=== PATIENT | female | born 1955 | race Caucasian/White ===

== ENCOUNTER 2018-04-29 22:30 | Inpatient (IN) | payer MEDICARE ==
[~2018-04-29] VITALS: Ht 165.1 cm; Wt 68.7 kg
[2018-04-29] MEDS: SODIUM CHLORIDE 0.9% 1000ML 1,000 ML IV SCH (23:15)
[2018-04-30] VITALS (10 sets, daily range): BP systolic 102–143; BP diastolic 51–67
[2018-04-30] MEDS: PIPER-TAZ 3.375 GM 50 ML IV SCH ×4 (01:00→22:00)
[2018-04-30] MEDS: ACETAMINOPHEN 325 MG TAB PO PRN (02:15)
[2018-04-30] MEDS: HYDROMORPHONE 1MG/1ML INJ IV PRN ×3 (06:09→20:57)
[2018-04-30] MEDS: ONDANSETRON HCL INJ 2 MG/ML VIAL IV PRN ×3 (06:09→20:57)
[2018-04-30] MEDS ORDERED: ACEBUTOLOL HCL200 MG PO (10:20)
[2018-04-30] MEDS ORDERED: LOVASTATIN40 MG PO (10:20)
[2018-04-30] MEDS ORDERED: TYLENOL WITH C1 EACH PO (10:20)
[2018-04-30] MEDS ORDERED: LOSARTAN POTASS25 MG PO (10:20)
[2018-04-30 10:38] LABS: BASOPHILS % 0.2 % (0.0-1.0); HEMATOCRIT 27.7 % (34.2-44.1); LYMPHOCYTES # (AUTO) 0.8 (1.0-3.2); LYMPHOCYTES % 4.1 % (18.0-39.1); MEAN CORPUSCULAR HEMOGLOBIN 27.9 pg (28-32); MEAN CORPUSCULAR HGB CONC 31.4 g/dL (31-35); MEAN CORPUSCULAR VOLUME 88.8 fL (81-99); MONOCYTES # (AUTO) 0.6 (0.2-0.8); NEUTROPHILS # (AUTO) 17.8 (2.1-6.9); NEUTROPHILS % 92.1 % (38.7-80.0); PLATELET COUNT 336 x10e3/uL (140-360); RED BLOOD COUNT 3.12 x10e6/uL (3.6-5.1); RED CELL DISTRIBUTION WIDTH 14.6 % (11.7-14.4)
[2018-04-30 10:41] LABS: HEMOGLOBIN 8.7 g/dL (12.0-16.0)
[2018-04-30 11:04] LABS: ANION GAP 14.7 mmol/L (8-16); BLOOD UREA NITROGEN 11 mg/dL (7-26); BUN/CREATININE RATIO 15 (6-25); CALCIUM 8.8 mg/dL (8.4-10.2); CARBON DIOXIDE 21 mmol/L (22-29); CHLORIDE 107 mmol/L (98-107); CREATININE, SERUM 0.75 mg/dL (0.57-1.11); EST GLOMERULAR FILTRATION RATE > 60 ML/MIN (60-); GLUCOSE 127 mg/dL (74-118); POTASSIUM 3.7 mmol/L (3.5-5.1); SODIUM 139 mmol/L (136-145)
[2018-04-30] MEDS: SODIUM CHLORIDE 0.9% 1000ML 1,000 ML IV SCH (11:46)
[2018-04-30 12:01] LABS: BAND NEUTROPHILS % (MANUAL) 9 %; LYMPHOCYTES % (MANUAL) 4 % (19-48); MONOCYTES % (MANUAL) 4 % (3.4-9.0); NEUTROPHILS % (MANUAL) 83 % (40-74)
[2018-04-30 12:02] LABS: ANISOCYTOSIS SLIGHT; HYPOCHROMASIA SLIGHT; PLATELET ESTIMATE ADEQUATE; PLATELET MORPHOLOGY COMMENT NORMAL; RBC MORPHOLOGY COMMENT NORMAL
--- NOTE | 2018-04-30 16:28 | Consultation ---
DATE OF CONSULTATION: REASON FOR CONSULTATION: Pelvic abscess. HISTORY OF PRESENT ILLNESS: This patient, according to family, she was in her usual state of health until the day before admission when she started to have abdominal pain, fever, and chills, and the pain was in lower part of her abdomen. The patient has a history of stroke affecting her speech. Patient is alert, oriented, follows commands. Her son is at the bedside. The patient is complaining of abdominal pain. A CAT scan was done, showed there was a cyst. The patient was seen by surgery, who recommended to be seen by NET FISHER since the cyst/mass is related to her ovaries. The patient is currently alert, oriented, has no complaints except for pain as mentioned above. REVIEW OF SYSTEMS HEENT: Otherwise negative. PULMONARY: Negative. CARDIAC: Negative. : Negative. GI: Negative. SKIN: There is no rash. JOINTS: Negative. PHYSICAL EXAMINATION GENERAL: She is currently alert, oriented, does not seem to be in acute distress. VITALS: Stable, currently afebrile. HEENT: Normocephalic. Does not appear icteric. NECK: Supple. No JVD. No lymphadenopathy. No thyromegaly. CHEST: Clear bilateral. HEART: S1, S2. No S3, S4 murmur. ABDOMEN: Soft. Bowel sounds present. No tenderness. EXTREMITIES: No edema. SKIN: No rash. Her white count was 19.8, hemoglobin 8.7, platelets of 336. Her sodium 139, potassium 3.7. IMPRESSION: Pelvic ovarian cyst, abscess. Concern about other. PLAN: I would recommend CT-guided aspiration, NET FISHER consulted. Continue with Zosyn. Await blood cultures. Discussed with the family. Will discuss with NET FISHER after the patient has been seen. Job#: [id number] KAYLEEN
[2018-04-30] MEDS ORDERED: DEXAMETHASONE SOD PHOS INJ 4 MG/ML VIAL ONE (17:30)
[2018-04-30] MEDS ORDERED: SEVOFLURANE INHAL SOLN 250 ML PEN BTL ONE (17:30)
[2018-04-30] MEDS ORDERED: EPHEDRINE SULFATE INJ 50 MG/10 ML SYR ONE (17:30)
[2018-04-30] MEDS ORDERED: PROPOFOL IV EMULSION 10 MG/ML 20 ML VIAL ONE (17:30)
[2018-04-30] MEDS ORDERED: LIDOCAINE HCL 2% LOCAL INJ 5 ML SDV VIAL INJ ONE (17:30)
[2018-04-30] MEDS ORDERED: ONDANSETRON HCL INJ 2 MG/ML VIAL ONE (17:30)
[2018-04-30] MEDS ORDERED: MIDAZOLAM HCL 2 MG/2 ML VIAL ONE (18:23)
[2018-04-30] MEDS ORDERED: FENTANYL CITRATE/PF 100MCG/2 ML INJ ONE (18:23)
[2018-04-30] MEDS: ENOXAPARIN SOD INJ 40 MG/0.4 ML SYR SC SCH (21:00)
[2018-05-01] VITALS (8 sets, daily range): BP systolic 102–151; BP diastolic 53–90
[2018-05-01] MEDS: SODIUM CHLORIDE 0.9% 1000ML 1,000 ML IV SCH ×2 (06:14→15:15)
[2018-05-01] MEDS: PIPER-TAZ 3.375 GM 50 ML IV SCH ×3 (06:14→21:07)
[2018-05-01 06:20] LABS: BASOPHILS % 0.1 % (0.0-1.0); HEMATOCRIT 25.1 % (34.2-44.1); HEMOGLOBIN 7.9 g/dL (12.0-16.0); LYMPHOCYTES # (AUTO) 0.5 (1.0-3.2); MEAN CORPUSCULAR HEMOGLOBIN 28.2 pg (28-32); MEAN CORPUSCULAR HGB CONC 31.5 g/dL (31-35); MEAN CORPUSCULAR VOLUME 89.6 fL (81-99); MONOCYTES # (AUTO) 0.4 (0.2-0.8); MONOCYTES % 2.1 % (4.4-11.3); NEUTROPHILS % 94.1 % (38.7-80.0); PLATELET COUNT 340 x10e3/uL (140-360); RED CELL DISTRIBUTION WIDTH 14.6 % (11.7-14.4)
[2018-05-01 06:40] LABS: ALANINE AMINOTRANSFERASE 21 IU/L (0-55); ALBUMIN 1.9 g/dL (3.5-5.0); ALBUMIN/GLOBULIN RATIO 0.5 (0.8-2.0); ALKALINE PHOSPHATASE 127 IU/L (40-150); ANION GAP 12.7 mmol/L (8-16); BLOOD UREA NITROGEN 11 mg/dL (7-26); BUN/CREATININE RATIO 16 (6-25); CARBON DIOXIDE 21 mmol/L (22-29); CHLORIDE 109 mmol/L (98-107); CREATININE, SERUM 0.67 mg/dL (0.57-1.11); EST GLOMERULAR FILTRATION RATE > 60 ML/MIN (60-); GLUCOSE 168 mg/dL (74-118); POTASSIUM 3.7 mmol/L (3.5-5.1); SODIUM 139 mmol/L (136-145)
[2018-05-01] MEDS ORDERED: SODIUM CHLORIDE 0.9% 250ML 250 ML IV ONE (07:00)
[2018-05-01 10:15] LABS: BAND NEUTROPHILS % (MANUAL) 4 %; LYMPHOCYTES % (MANUAL) 2 % (19-48); NEUTROPHILS % (MANUAL) 94 % (40-74)
[2018-05-01 10:16] LABS: PLATELET ESTIMATE ADEQUATE; PLATELET MORPHOLOGY COMMENT NORMAL; RBC MORPHOLOGY COMMENT NORMAL
[2018-05-01 10:17] LABS: ANISOCYTOSIS SLIGHT; HYPOCHROMASIA MODERATE
[2018-05-01] MEDS ORDERED: SODIUM CHLORIDE 0.9% 250ML 250 ML ONE (10:44)
[2018-05-01] MEDS: ONDANSETRON HCL INJ 2 MG/ML VIAL IV PRN ×2 (11:47→20:54)
[2018-05-01] MEDS: HYDROMORPHONE 1MG/1ML INJ IV PRN ×2 (11:47→20:54)
--- NOTE | 2018-05-01 13:52 | Operative Report ---
DATE OF PROCEDURE: April 30, 2018 TOBACCO WEIGHER: None. PREOPERATIVE DIAGNOSES 1. Thickened endometrium. 2. Pelvic mass. POSTOPERATIVE DIAGNOSES 1. Thickened endometrium. 2. Pelvic mass. PROCEDURES PERFORMED 1. Dilatation and curettage. Exam under anesthesia. 1. ANESTHESIA: General. ESTIMATED BLOOD LOSS: Minimal. COMPLICATIONS: None. FINDINGS: During exam under anesthesia, the patient was noted to have a small anteverted uterus, atrophic vaginal mucosa, a palpable left adnexal mass, which appeared to be cystic in nature and cervix both atrophic and firm. SPECIMENS: Included endometrial curettings. INDICATIONS: The patient is a 63-year-old postmenopausal 2, para 2, who presented to the hospital with a pelvic mass and thickened endometrium. PROCEDURE NOTE: Prior to the procedure, the risks, benefits and alternatives were discussed and the patient agreed to proceed. Following anesthesia, the patient was placed in a modified dorsal lithotomy position. Prepping and draping was performed in typical sterile fashion and a timeout was done. An exam under anesthesia was performed with the findings noted above. A Pap smear of the cervix was obtained, which was then brought to my office for further evaluation. A weighted speculum was then replaced in the vagina. The cervix was grasped with a single-tooth tenaculum. The cervix was sequentially dilated with Hegar dilators. Cultures were taken of the endometrial contents. A sharp curettage was then performed until a gritty texture was noted. All endometrial tissues were sent to pathology. All instruments were removed from the patient and tenaculum sites were noted to be hemostatic. The patient was brought to the recovery room in stable condition. Job#: [id number] BARBRE
[2018-05-01] MEDS: ENOXAPARIN SOD INJ 40 MG/0.4 ML SYR SC SCH (17:12)
[2018-05-01] MEDS: PANTOPRAZOLE SOD 40 MG TABEC PO SCH (17:35)
[2018-05-02] VITALS (7 sets, daily range): BP systolic 144–188; BP diastolic 66–123
[2018-05-02] MEDS: SODIUM CHLORIDE 0.9% 1000ML 1,000 ML IV SCH ×2 (00:28→03:07)
[2018-05-02] MEDS: PIPER-TAZ 3.375 GM 50 ML IV SCH (05:18)
[2018-05-02 05:56] LABS: BASOPHILS % 0.1 % (0.0-1.0); HEMOGLOBIN 10.3 g/dL (12.0-16.0); LYMPHOCYTES # (AUTO) 0.8 (1.0-3.2); LYMPHOCYTES % 4.2 % (18.0-39.1); MEAN CORPUSCULAR HEMOGLOBIN 28.5 pg (28-32); MEAN CORPUSCULAR HGB CONC 32.2 g/dL (31-35); MEAN CORPUSCULAR VOLUME 88.4 fL (81-99); MONOCYTES # (AUTO) 0.4 (0.2-0.8); MONOCYTES % 1.9 % (4.4-11.3); NEUTROPHILS # (AUTO) 18.5 (2.1-6.9); NEUTROPHILS % 92.5 % (38.7-80.0); PLATELET COUNT 378 x10e3/uL (140-360); RED BLOOD COUNT 3.62 x10e6/uL (3.6-5.1); RED CELL DISTRIBUTION WIDTH 14.6 % (11.7-14.4)
[2018-05-02 06:28] LABS: ALANINE AMINOTRANSFERASE 16 IU/L (0-55); ALBUMIN 1.8 g/dL (3.5-5.0); ALBUMIN/GLOBULIN RATIO 0.4 (0.8-2.0); ALKALINE PHOSPHATASE 133 IU/L (40-150); ANION GAP 10.6 mmol/L (8-16); BLOOD UREA NITROGEN 11 mg/dL (7-26); BUN/CREATININE RATIO 17 (6-25); CALCIUM 9.1 mg/dL (8.4-10.2); CARBON DIOXIDE 22 mmol/L (22-29); CHLORIDE 108 mmol/L (98-107); CREATININE, SERUM 0.64 mg/dL (0.57-1.11); EST GLOMERULAR FILTRATION RATE > 60 ML/MIN (60-); GLUCOSE 118 mg/dL (74-118); POTASSIUM 3.6 mmol/L (3.5-5.1); SODIUM 137 mmol/L (136-145)
[2018-05-02] MEDS: MAGNESIUM/ALUMINUM/SIMETHICONE 30 ML UDC PO PRN (07:01)
[2018-05-02] MEDS: ONDANSETRON HCL INJ 2 MG/ML VIAL IV PRN (07:30)
[2018-05-02] MEDS: PANTOPRAZOLE SOD 40 MG TABEC PO SCH (09:00)
[2018-05-02] MEDS: LOSARTAN POTASSIUM 25 MG TAB PO SCH (09:00)
[2018-05-02] MEDS: ACEBUTOLOL HCL 200 MG CAP PO SCH (10:25)
[2018-05-02] MEDS: PROMETHAZINE 25MG/ NS 50ML (IV) IV PRN ×2 (11:20→21:12)
[2018-05-02] MEDS: CEFTRIAXONE SOD 1 GM VIAL IV SCH (11:20)
[2018-05-02 11:21] LABS: AMYLASE 20 U/L (25-125)
[2018-05-02 11:22] LABS: LIPASE < 4 U/L (8-78)
[2018-05-02] MEDS: ENOXAPARIN SOD INJ 40 MG/0.4 ML SYR SC SCH (17:00)
[2018-05-02] MEDS: SIMVASTATIN 20 MG TAB PO SCH (20:20)
[2018-05-02] MEDS: HYDROMORPHONE 1MG/1ML INJ IV PRN (21:12)
[2018-05-03] VITALS (7 sets, daily range): BP systolic 123–154; BP diastolic 59–82
[2018-05-03] MEDS: SODIUM CHLORIDE 0.9% 1000ML 1,000 ML IV SCH (07:15)
[2018-05-03 07:59] LABS: BASOPHILS % 0.2 % (0.0-1.0); EOSINOPHILS % 0.1 % (0.0-6.0); HEMATOCRIT 30.8 % (34.2-44.1); HEMOGLOBIN 9.8 g/dL (12.0-16.0); LYMPHOCYTES # (AUTO) 1.1 (1.0-3.2); LYMPHOCYTES % 9.3 % (18.0-39.1); MEAN CORPUSCULAR HEMOGLOBIN 28.1 pg (28-32); MEAN CORPUSCULAR HGB CONC 31.8 g/dL (31-35); MEAN CORPUSCULAR VOLUME 88.3 fL (81-99); MONOCYTES # (AUTO) 0.4 (0.2-0.8); MONOCYTES % 3.3 % (4.4-11.3); NEUTROPHILS # (AUTO) 10.1 (2.1-6.9); NEUTROPHILS % 86.7 % (38.7-80.0); PLATELET COUNT 363 x10e3/uL (140-360); RED BLOOD COUNT 3.49 x10e6/uL (3.6-5.1)
[2018-05-03 08:17] LABS: ANION GAP 10.5 mmol/L (8-16); BLOOD UREA NITROGEN 13 mg/dL (7-26); BUN/CREATININE RATIO 22 (6-25); CALCIUM 8.5 mg/dL (8.4-10.2); CARBON DIOXIDE 22 mmol/L (22-29); CHLORIDE 110 mmol/L (98-107); EST GLOMERULAR FILTRATION RATE > 60 ML/MIN (60-); GLUCOSE 106 mg/dL (74-118); POTASSIUM 3.5 mmol/L (3.5-5.1); SODIUM 139 mmol/L (136-145)
[2018-05-03] MEDS: ACEBUTOLOL HCL 200 MG CAP PO SCH (08:30)
[2018-05-03] MEDS: LOSARTAN POTASSIUM 25 MG TAB PO SCH (08:30)
[2018-05-03] MEDS: PANTOPRAZOLE SOD 40 MG TABEC PO SCH (08:30)
[2018-05-03] MEDS: CEFTRIAXONE SOD 1 GM VIAL IV SCH (08:30)
[2018-05-03] MEDS ORDERED: CEFTRIAXONE SOD 1 GM VIAL IV SCH (09:00)
[2018-05-03] MEDS: ONDANSETRON HCL INJ 2 MG/ML VIAL IV PRN (15:42)
[2018-05-03] MEDS: HYDROMORPHONE 1MG/1ML INJ IV PRN (15:42)
[2018-05-03] MEDS: ENOXAPARIN SOD INJ 40 MG/0.4 ML SYR SC SCH (17:00)
[2018-05-03] MEDS: SIMVASTATIN 20 MG TAB PO SCH (22:00)
[2018-05-04] MEDS: PROMETHAZINE 25MG/ NS 50ML (IV) IV PRN ×2 (00:45→21:12)
[2018-05-04] MEDS: HYDROMORPHONE 1MG/1ML INJ IV PRN ×2 (00:45→21:12)
[2018-05-04 00:49] VITALS: BP 139/65
[2018-05-04] MEDS: SODIUM CHLORIDE 0.9% 1000ML 1,000 ML IV SCH ×2 (03:00→09:55)
[2018-05-04 05:03] VITALS: BP 132/61
[2018-05-04 08:00] VITALS: BP 143/67
[2018-05-04] MEDS: CEFTRIAXONE SOD 1 GM VIAL IV SCH (08:30)
[2018-05-04] MEDS: ACEBUTOLOL HCL 200 MG CAP PO SCH (08:30)
[2018-05-04] MEDS: PANTOPRAZOLE SOD 40 MG TABEC PO SCH (08:30)
[2018-05-04] MEDS: LOSARTAN POTASSIUM 25 MG TAB PO SCH (08:30)
[2018-05-04 12:00] VITALS: BP 156/78
[2018-05-04 16:00] VITALS: BP 147/54
[2018-05-04] MEDS: ENOXAPARIN SOD INJ 40 MG/0.4 ML SYR SC SCH (16:54)
[2018-05-04 20:00] VITALS: BP 151/71
[2018-05-04] MEDS: SIMVASTATIN 20 MG TAB PO SCH (21:00)
[2018-05-05] VITALS (10 sets, daily range): BP systolic 136–169; BP diastolic 66–89
[2018-05-05 06:02] LABS: BASOPHILS % 0.2 % (0.0-1.0); EOSINOPHILS # (AUTO) 0.1 (0.0-0.4); EOSINOPHILS % 0.5 % (0.0-6.0); HEMATOCRIT 29.5 % (34.2-44.1); HEMOGLOBIN 9.3 g/dL (12.0-16.0); LYMPHOCYTES # (AUTO) 0.9 (1.0-3.2); LYMPHOCYTES % 8.9 % (18.0-39.1); MEAN CORPUSCULAR HEMOGLOBIN 27.9 pg (28-32); MEAN CORPUSCULAR HGB CONC 31.5 g/dL (31-35); MEAN CORPUSCULAR VOLUME 88.6 fL (81-99); MONOCYTES # (AUTO) 0.3 (0.2-0.8); MONOCYTES % 3.2 % (4.4-11.3); NEUTROPHILS # (AUTO) 8.2 (2.1-6.9); NEUTROPHILS % 85.3 % (38.7-80.0); PLATELET COUNT 311 x10e3/uL (140-360); RED BLOOD COUNT 3.33 x10e6/uL (3.6-5.1); RED CELL DISTRIBUTION WIDTH 14.9 % (11.7-14.4)
[2018-05-05 06:22] LABS: ALANINE AMINOTRANSFERASE 21 IU/L (0-55); ALBUMIN 1.7 g/dL (3.5-5.0); ALBUMIN/GLOBULIN RATIO 0.5 (0.8-2.0); ALKALINE PHOSPHATASE 167 IU/L (40-150); ANION GAP 11.2 mmol/L (8-16); BLOOD UREA NITROGEN 5 mg/dL (7-26); BUN/CREATININE RATIO 9 (6-25); CALCIUM 8.3 mg/dL (8.4-10.2); CARBON DIOXIDE 23 mmol/L (22-29); CHLORIDE 108 mmol/L (98-107); CREATININE, SERUM 0.54 mg/dL (0.57-1.11); EST GLOMERULAR FILTRATION RATE > 60 ML/MIN (60-); GLUCOSE 101 mg/dL (74-118); POTASSIUM 3.2 mmol/L (3.5-5.1); SODIUM 139 mmol/L (136-145)
[2018-05-05] MEDS: LOSARTAN POTASSIUM 25 MG TAB PO SCH (08:23)
[2018-05-05] MEDS: CEFTRIAXONE SOD 1 GM VIAL IV SCH (08:23)
[2018-05-05] MEDS: PANTOPRAZOLE SOD 40 MG TABEC PO SCH (08:23)
[2018-05-05] MEDS: ACEBUTOLOL HCL 200 MG CAP PO SCH (08:23)
[2018-05-05] MEDS ORDERED: POTASSIUM CHLORIDE 20 MEQ TAB CR PO ONE (10:10)
[2018-05-05] MEDS: HYDROMORPHONE 1MG/1ML INJ IV PRN (11:24)
[2018-05-05] MEDS: ONDANSETRON HCL INJ 2 MG/ML VIAL IV PRN (11:25)
[2018-05-05] MEDS: ENOXAPARIN SOD INJ 40 MG/0.4 ML SYR SC SCH (16:45)
[2018-05-05] MEDS: SIMVASTATIN 40 MG TAB PO SCH (20:42)
[2018-05-06] VITALS (8 sets, daily range): BP systolic 149–184; BP diastolic 72–92
[2018-05-06 06:15] LABS: BASOPHILS % 0.2 % (0.0-1.0); EOSINOPHILS # (AUTO) 0.1 (0.0-0.4); EOSINOPHILS % 0.6 % (0.0-6.0); HEMATOCRIT 29.1 % (34.2-44.1); HEMOGLOBIN 9.4 g/dL (12.0-16.0); LYMPHOCYTES # (AUTO) 0.9 (1.0-3.2); LYMPHOCYTES % 9.4 % (18.0-39.1); MEAN CORPUSCULAR HEMOGLOBIN 27.9 pg (28-32); MEAN CORPUSCULAR HGB CONC 32.3 g/dL (31-35); MEAN CORPUSCULAR VOLUME 86.4 fL (81-99); MONOCYTES # (AUTO) 0.4 (0.2-0.8); NEUTROPHILS # (AUTO) 8.1 (2.1-6.9); NEUTROPHILS % 84.8 % (38.7-80.0); PLATELET COUNT 323 x10e3/uL (140-360); RED BLOOD COUNT 3.37 x10e6/uL (3.6-5.1); RED CELL DISTRIBUTION WIDTH 14.7 % (11.7-14.4)
[2018-05-06 06:43] LABS: ALANINE AMINOTRANSFERASE 20 IU/L (0-55); ALBUMIN 1.7 g/dL (3.5-5.0); ALBUMIN/GLOBULIN RATIO 0.4 (0.8-2.0); ALKALINE PHOSPHATASE 176 IU/L (40-150); ANION GAP 11.7 mmol/L (8-16); BLOOD UREA NITROGEN 5 mg/dL (7-26); BUN/CREATININE RATIO 9 (6-25); CALCIUM 8.7 mg/dL (8.4-10.2); CARBON DIOXIDE 24 mmol/L (22-29); CHLORIDE 108 mmol/L (98-107); CREATININE, SERUM 0.55 mg/dL (0.57-1.11); EST GLOMERULAR FILTRATION RATE > 60 ML/MIN (60-); GLUCOSE 115 mg/dL (74-118); POTASSIUM 3.7 mmol/L (3.5-5.1); SODIUM 140 mmol/L (136-145)
[2018-05-06] MEDS: PANTOPRAZOLE SOD 40 MG TABEC PO SCH (07:47)
[2018-05-06] MEDS: CEFTRIAXONE SOD 1 GM VIAL IV SCH (08:49)
[2018-05-06] MEDS: ACEBUTOLOL HCL 200 MG CAP PO SCH (08:49)
[2018-05-06] MEDS: LOSARTAN POTASSIUM 25 MG TAB PO SCH (08:49)
[2018-05-06] MEDS: ONDANSETRON HCL INJ 2 MG/ML VIAL IV PRN (14:45)
[2018-05-06] MEDS: HYDROMORPHONE 1MG/1ML INJ IV PRN (14:45)
[2018-05-06] MEDS: ENOXAPARIN SOD INJ 40 MG/0.4 ML SYR SC SCH (16:39)
[2018-05-06] MEDS: SIMVASTATIN 40 MG TAB PO SCH (20:36)
[2018-05-07] VITALS (7 sets, daily range): BP systolic 151–168; BP diastolic 77–92
[2018-05-07] MEDS: ACETAMINOPHEN 325 MG TAB PO PRN (06:25)
[2018-05-07] MEDS ORDERED: IOPAMIDOL 300MG/ML 50ML INFUS..BTL IV ONE (07:03)
[2018-05-07] MEDS: PANTOPRAZOLE SOD 40 MG TABEC PO SCH (07:30)
[2018-05-07] MEDS ORDERED: METRONIDAZOLE 500MG/NS 100ML 100 ML IV ONE (08:58)
[2018-05-07] MEDS: CEFTRIAXONE SOD 1 GM VIAL IV SCH (09:00)
[2018-05-07] MEDS: LOSARTAN POTASSIUM 25 MG TAB PO SCH (09:00)
[2018-05-07] MEDS: ACEBUTOLOL HCL 200 MG CAP PO SCH (09:00)
[2018-05-07] MEDS ORDERED: NALOXONE HCL INJ 0.4 MG/ML AMP IV PRN (10:00)
[2018-05-07] MEDS ORDERED: ONDANSETRON HCL INJ 2 MG/ML VIAL IV PRN (10:00)
[2018-05-07] MEDS ORDERED: ACETAMINOPHEN 1000 MG/100 ML IV PRN (10:00)
[2018-05-07] MEDS ORDERED: FENTANYL CITRATE/PF 100MCG/2 ML INJ ONE ×2 (10:41→16:34)
--- NOTE | 2018-05-07 11:54 | Operative Report ---
DATE OF PROCEDURE: PREOPERATIVE DIAGNOSIS: Pelvic abscess. POSTOPERATIVE DIAGNOSIS: Pelvic abscess secondary to perforated diverticulitis with adnexal mass. PROCEDURE: Sigmoid colon resection with end-colostomy and resection of adnexal mass. TIMEKEEPING SUPERVISOR: Sally Yee MD ANESTHESIA: General endotracheal. INDICATIONS AND FINDINGS: The patient is a 63-year-old female who was admitted to the hospital with abdominal pain and found to have an abscess in the pelvis thought to be due to tubo-ovarian pathology. At surgery, there was found to be an abscess that was arising from the sigmoid colon. There were diverticular disease and perforation of the sigmoid colon. Abscess involved the left tube and ovary, which were removed with the abscess. TECHNIQUE: Patient was already undergoing surgery by Dr. Yee, and I was asked to come see the patient. The patient was found to have an inflammatory mass involving the mid-sigmoid colon, which was involving the left adnexa. The colon was mobilized further. The ureter had a stent in place, and this was palpable and the ureter was preserved. There was found to be an inflammatory process involving the mid-sigmoid colon. The colon was mobilized completely. There was found to be a mass associated with the colon which was an abscess cavity. This was resected and submitted for frozen section, which revealed abscess cavity but also contained left ovary and tube, which were not the source of the pathology. There was a perforation of the sigmoid colon. The sigmoid colon was resected. The colon proximal to the area of abscess was divided with the CAROLINE stapler as was the colon distal to the area of the abscess. The mesentery was divided with a LigaSure device and the specimen removed. Distal colon was marked with long sutures of 3-0 Prolene and left in place. The proximal colon was mobilized further by dividing peritoneal attachments. Care was taken not to injure the ureter. A stoma was created on the left side of the abdomen. A chicken ranch of skin removed and carried down through the subcutaneous tissue to the fascia. The fascia was opened in a cruciate fashion, muscle fibers split, and the peritoneal cavity was entered. Colon was delivered up into the wound to be matured as a colostomy. The peritoneal cavity was irrigated with saline. All fluid aspirated and inspected for hemostasis, which was seen to be adequate. It was irrigated further with saline. All fluid aspirated and inspected for hemostasis, which was seen to be adequate. Midline fascia was closed with a running suture of #1 PDS. Subcutaneous tissue was irrigated with saline. Skin was closed with karine. Colon was then opened and matured using sutures of 3-0 Vicryl to tack the skin to the colon with interrupted 3-0 Vicryl. Colostomy appliance was applied. A sterile dressing was applied to the wound. Patient tolerated the procedure well. Estimated blood loss from my portion of the procedure was 100 mL. There were no complications. All counts were correct. Patient was taken to the recovery room in satisfactory condition. Job#: [id number] cc:MD SALLY WILLIAMSON MD ZAHER SHEBIB, MD
[2018-05-07] MEDS: METRONIDAZOLE 500MG/NS 100ML 100 ML IV SCH ×2 (12:00→22:22)
--- NOTE | 2018-05-07 13:11 | Operative Report ---
SURGEONS: Dr. Sally Yee as well as Dr. Justin Rodriguez with intraoperative consult. MECHANICAL TECHNICAL SERVICE SPECIALIST: Dr. Oly Mccormick. DATE OF PROCEDURE: May 07, 2018 OPERATIONS PERFORMED: Exploratory laparotomy with drainage of pelvic abscess by Dr. Yee as well as resection of diverticular abscess including left salpingo-oophorectomy as well as a sigmoid colectomy and colostomy by Dr. Rodriguez. Prior to the procedure, Dr. Conner Lyles did cystoscopy and bilateral stent placement. ANESTHESIA: General. SPECIMENS: Pelvic washings for cytology, left adnexa adherent to diverticular abscess cavity as well as aerobic and anaerobic cultures of abscess cavity. INDICATIONS FOR PROCEDURE: The patient is a 63-year-old postmenopausal female who presented last week with left lower quadrant pain, nausea, vomiting, fever, and leukocytosis and was found to have a pelvic mass on CT scan as well as thickened endometrium. She underwent an exam under anesthesia and dilatation and curettage with polypectomy on April 30, which showed a benign endometrial polyp. Tumor markers were performed which showed a low level for CA125 and CEA and IV antibiotics were given. She has been afebrile and leukocytosis is resolving. Decision was made to proceed with removal of pelvic mass. FINDINGS: Operative findings included a small mobile uterus, normal right adnexa. No evidence of spread of disease. The pelvic mass in the left lower quadrant was adherent to the pelvic sidewall, sigmoid colon, left adnexa. Upon palpation of the mass, purulent fluid was noted to be escaping from the mass. The cavity of the abscess was probed and noted to be contiguous with the sigmoid colon. General Surgery was consulted. DETAILS OF PROCEDURE: The patient was brought to the operating room where general anesthesia was induced after which she was prepped and draped in typical sterile fashion. Dr. Conner Lyles performed a cystoscopy with bilateral ureteral stent placement. Please see his operative report for further details of this procedure. The patient was then placed in the dorsal supine position and reprepped and draped in typical sterile fashion for a total abdominal hysterectomy. A vertical midline incision was then made from the level of the pubis to the umbilicus and the fascia was divided with the Bovie cautery. Peritoneum was entered sharply without difficulty and pelvic washings were obtained. The abdomen was explored with findings as noted above. A Bookwalter retractor was placed and bowel was packed. A clamp was placed on the left broad ligament for traction. The pelvic abscess was drained as noted above and Dr. Rodriguez with General Surgery was consulted. He performed a full resection of the diverticular abscess cavity including left adnexa as well as sigmoid colectomy and colostomy. Please see his operative report for further details of the procedure. Job#: [id number] NASIM
[2018-05-07] MEDS: DEXTROSE 5%/LACTATED RINGERS 1,000 ML IV SCH ×2 (15:00→17:59)
[2018-05-07] MEDS ORDERED: MIDAZOLAM HCL 2 MG/2 ML VIAL ONE (16:34)
[2018-05-07] MEDS: ENOXAPARIN SOD INJ 40 MG/0.4 ML SYR SC SCH (17:00)
--- NOTE | 2018-05-07 19:16 | Consultation ---
DATE OF CONSULTATION: May 06, 2018 INITIAL HOSPITAL VISIT SERVICE: Urology REASON FOR VISIT: This is a 63-year-old patient who was found to have left pelvic mass. The patient is planned to have surgery by gynecology to do hysterectomy and exploration of the mass. PAST MEDICAL HISTORY: Not contributory. FAMILY HISTORY: Noncontributory. REVIEW OF SYSTEMS: Twelve systems reviewed except for minimal frequency of urination. She has no significant problem. No history of gross hematuria or blood in the stool. PHYSICAL EXAMINATION GENERAL: The patient is alert and oriented times 3. Does not seem to be in acute distress. VITALS: Blood pressure is 120/80, pulse 80, respirations 18 . HEENT: Symmetric. NECK: No JVD. CHEST: Clear. HEART: Regular. ABDOMEN: Soft. No palpable masses. No rebound. GENITOURINARY: External genitalia atrophic. Urethra normal to palpation. EXTREMITIES: Moves all. LABORATORY DATA: Reviewed. Creatinine and BUN are normal. IMPRESSION 1. Pelvic mass. 2. Minimal frequency. PLAN: Before the gynecological surgery, I am planning to do diagnostic cystoscopy, as well as placement of ureteral catheters bilaterally to access in identifying the ureters. Job#: [id number] MORRIS
--- NOTE | 2018-05-07 19:53 | Operative Report ---
DATE OF PROCEDURE: May 07, 2018 SERVICE: Urology. ATTENDING PHYSICIAN: Dr. Fransisco Morris PREOPERATIVE DIAGNOSIS: Pelvic mass. POSTOPERATIVE DIAGNOSIS: Pelvic mass. OPERATION PERFORMED 1. Cystoscopy, bilateral retrograde pyelograms under fluoroscopic control. 2. Placement of bilateral ureteral catheters. 3. Interpretation of x-ray, radiologist not present. 4. Supervision of fluoroscopy, radiologist not present. 5. Pelvic exam. This was done as part of the assessment of the mass. PHYSICAL THERAPY NURSE: None. ANESTHESIA: General. CLINICAL INDICATION NOTE: This is a 63-year-old patient who is brought for gynecological exploration. The patient is planned to have placement of ureteral catheters and assessment of the lower and upper tracts. DESCRIPTION OF PROCEDURE AND FINDINGS: After proper level of anesthesia was achieved, the patient was placed in lithotomy position, prepped and draped in the usual sterile fashion. Urethra inspected and was unremarkable. Vagina is quite atrophic. The bladder outlet is patent. The bladder mucosa is normal. No tumor and no foreign bodies are identified. Both ureteral orifices are in normal position. Open-ended catheters were inserted bilaterally. Retrograde pyelogram demonstrated minimal displacement of the left ureter medially. However, no masses and no blockage was noticed. A Li catheter was inserted, and the ureteral catheters that were inserted were inserted into the Li. Following this, pelvic exam was done under anesthesia as part of the assessment of the pelvic mass. No mass was identified. The patient tolerated the procedure well. Job#: [id number]
[2018-05-07] MEDS: SIMVASTATIN 40 MG TAB PO SCH (21:00)
[2018-05-08] VITALS (7 sets, daily range): BP systolic 145–157; BP diastolic 56–79
[2018-05-08] MEDS: DEXTROSE 5%/LACTATED RINGERS 1,000 ML IV SCH ×3 (03:18→17:59)
[2018-05-08] MEDS: HYDROMORPHONE 0.2MG/ML-SOD CHL 30ML PCA SYRINGE IV PRN (05:16)
[2018-05-08 05:30] LABS: BASOPHILS % 0.1 % (0.0-1.0); HEMATOCRIT 28.1 % (34.2-44.1); HEMOGLOBIN 8.7 g/dL (12.0-16.0); LYMPHOCYTES # (AUTO) 0.7 (1.0-3.2); LYMPHOCYTES % 4.3 % (18.0-39.1); MEAN CORPUSCULAR HEMOGLOBIN 27.6 pg (28-32); MEAN CORPUSCULAR VOLUME 89.2 fL (81-99); MONOCYTES # (AUTO) 0.4 (0.2-0.8); MONOCYTES % 2.5 % (4.4-11.3); NEUTROPHILS # (AUTO) 15.3 (2.1-6.9); NEUTROPHILS % 92.4 % (38.7-80.0); PLATELET COUNT 378 x10e3/uL (140-360); RED BLOOD COUNT 3.15 x10e6/uL (3.6-5.1)
[2018-05-08] MEDS: METRONIDAZOLE 500MG/NS 100ML 100 ML IV SCH ×3 (05:45→22:10)
[2018-05-08 05:48] LABS: ANION GAP 14.9 mmol/L (8-16); BLOOD UREA NITROGEN 6 mg/dL (7-26); BUN/CREATININE RATIO 11 (6-25); CALCIUM 8.6 mg/dL (8.4-10.2); CARBON DIOXIDE 22 mmol/L (22-29); CHLORIDE 106 mmol/L (98-107); CREATININE, SERUM 0.54 mg/dL (0.57-1.11); EST GLOMERULAR FILTRATION RATE > 60 ML/MIN (60-); GLUCOSE 168 mg/dL (74-118); POTASSIUM 3.9 mmol/L (3.5-5.1); SODIUM 139 mmol/L (136-145)
[2018-05-08] MEDS: PANTOPRAZOLE SOD 40 MG TABEC PO SCH ×2 (07:30→17:00)
[2018-05-08] MEDS: LOSARTAN POTASSIUM 25 MG TAB PO SCH ×2 (09:00→17:00)
[2018-05-08] MEDS: CEFTRIAXONE SOD 1 GM VIAL IV SCH (09:00)
[2018-05-08] MEDS: ACEBUTOLOL HCL 200 MG CAP PO SCH ×2 (09:00→17:00)
[2018-05-08] MEDS ORDERED: PROPOFOL IV EMULSION 10 MG/ML 20 ML VIAL ONE (15:22)
[2018-05-08] MEDS ORDERED: LABETALOL HCL 5 MG/ML 20ML VIAL ONE (15:22)
[2018-05-08] MEDS ORDERED: ROCURONIUM BROMIDE 10 MG/ML 5ML VIAL ONE (15:22)
[2018-05-08] MEDS ORDERED: ACETAMINOPHEN 1000 MG/100 ML IV ONE (15:22)
[2018-05-08] MEDS ORDERED: DEXAMETHASONE SOD PHOS INJ 4 MG/ML VIAL ONE (15:22)
[2018-05-08] MEDS ORDERED: ONDANSETRON HCL INJ 2 MG/ML VIAL ONE (15:22)
[2018-05-08] MEDS ORDERED: LIDOCAINE HCL 2% LOCAL INJ 5 ML SDV VIAL INJ ONE (15:22)
[2018-05-08] MEDS ORDERED: CEFAZOLIN SOD 1 GM VIAL ONE (15:22)
[2018-05-08] MEDS ORDERED: SEVOFLURANE INHAL SOLN 250 ML PEN BTL ONE (15:22)
[2018-05-08] MEDS ORDERED: VASOPRESSIN INJ 20 UNIT/ML VIAL ONE (15:22)
[2018-05-08] MEDS ORDERED: PHENYLEPHRINE HCL 1% 10 MG/ML VIAL ONE (15:22)
[2018-05-08] MEDS: SIMVASTATIN 40 MG TAB PO SCH (22:10)
[2018-05-09] VITALS (8 sets, daily range): BP systolic 121–169; BP diastolic 58–86
[2018-05-09] MEDS: HYDROMORPHONE 0.2MG/ML-SOD CHL 30ML PCA SYRINGE IV PRN (00:05)
[2018-05-09] MEDS: DEXTROSE 5%/LACTATED RINGERS 1,000 ML IV SCH ×2 (01:37→13:31)
[2018-05-09] MEDS: METRONIDAZOLE 500MG/NS 100ML 100 ML IV SCH ×3 (05:52→21:17)
[2018-05-09] MEDS ORDERED: HYDROMORPHONE 0.2MG/ML-SOD CHL 30ML PCA SYRINGE IV PRN (07:00)
[2018-05-09] MEDS: PANTOPRAZOLE SOD 40 MG TABEC PO SCH (09:29)
[2018-05-09] MEDS: CEFTRIAXONE SOD 1 GM VIAL IV SCH (09:29)
[2018-05-09] MEDS: ACEBUTOLOL HCL 200 MG CAP PO SCH (09:29)
[2018-05-09] MEDS: LOSARTAN POTASSIUM 25 MG TAB PO SCH (09:29)
[2018-05-09] MEDS: SIMVASTATIN 40 MG TAB PO SCH (21:00)
[2018-05-10] VITALS (8 sets, daily range): BP systolic 158–188; BP diastolic 82–93
[2018-05-10] MEDS: DEXTROSE 5%/LACTATED RINGERS 1,000 ML IV SCH ×2 (04:57→16:00)
[2018-05-10] MEDS: MAGNESIUM/ALUMINUM/SIMETHICONE 30 ML UDC PO PRN (04:58)
[2018-05-10] MEDS: METRONIDAZOLE 500MG/NS 100ML 100 ML IV SCH ×3 (05:00→22:00)
[2018-05-10] MEDS: PANTOPRAZOLE SOD 40 MG TABEC PO SCH (07:53)
[2018-05-10] MEDS: CALCIUM CARBONATE 500 MG CHEWABLE TABS PO PRN ×3 (07:53→16:05)
[2018-05-10] MEDS: LOSARTAN POTASSIUM 25 MG TAB PO SCH (09:07)
[2018-05-10] MEDS: ACEBUTOLOL HCL 200 MG CAP PO SCH (09:08)
[2018-05-10] MEDS: ONDANSETRON HCL INJ 2 MG/ML VIAL IV PRN (11:17)
[2018-05-10] MEDS: CEFTRIAXONE SOD 1 GM VIAL IV SCH (12:14)
[2018-05-10] MEDS: HYDRALAZINE HCL 20 MG/ML VIAL IV PRN (12:14)
[2018-05-10] MEDS: PROMETHAZINE 25MG/ NS 50ML (IV) IV PRN (12:59)
[2018-05-10] MEDS: SIMVASTATIN 40 MG TAB PO SCH (20:54)
[2018-05-11] VITALS (7 sets, daily range): BP systolic 140–176; BP diastolic 63–98
[2018-05-11] MEDS: HYDRALAZINE HCL 20 MG/ML VIAL IV PRN ×2 (00:08→18:41)
[2018-05-11] MEDS: CALCIUM CARBONATE 500 MG CHEWABLE TABS PO PRN (02:04)
[2018-05-11] MEDS: ONDANSETRON HCL INJ 2 MG/ML VIAL IV PRN ×2 (03:40→08:01)
[2018-05-11] MEDS: METRONIDAZOLE 500MG/NS 100ML 100 ML IV SCH (05:02)
[2018-05-11 07:21] LABS: BASOPHILS % 0.2 % (0.0-1.0); EOSINOPHILS % 0.3 % (0.0-6.0); HEMATOCRIT 27.5 % (34.2-44.1); HEMOGLOBIN 8.8 g/dL (12.0-16.0); LYMPHOCYTES % 9.8 % (18.0-39.1); MEAN CORPUSCULAR HEMOGLOBIN 27.2 pg (28-32); MEAN CORPUSCULAR VOLUME 85.1 fL (81-99); MONOCYTES # (AUTO) 0.4 (0.2-0.8); MONOCYTES % 4.1 % (4.4-11.3); NEUTROPHILS # (AUTO) 8.9 (2.1-6.9); NEUTROPHILS % 84.9 % (38.7-80.0); PLATELET COUNT 512 x10e3/uL (140-360); RED BLOOD COUNT 3.23 x10e6/uL (3.6-5.1)
[2018-05-11 07:43] LABS: ALANINE AMINOTRANSFERASE 10 IU/L (0-55); ALBUMIN 1.6 g/dL (3.5-5.0); ALBUMIN/GLOBULIN RATIO 0.5 (0.8-2.0); ALKALINE PHOSPHATASE 86 IU/L (40-150); ANION GAP 13.4 mmol/L (8-16); BLOOD UREA NITROGEN 6 mg/dL (7-26); BUN/CREATININE RATIO 12 (6-25); CALCIUM 8.6 mg/dL (8.4-10.2); CARBON DIOXIDE 23 mmol/L (22-29); CHLORIDE 107 mmol/L (98-107); EST GLOMERULAR FILTRATION RATE > 60 ML/MIN (60-); GLUCOSE 141 mg/dL (74-118); POTASSIUM 3.4 mmol/L (3.5-5.1); SODIUM 140 mmol/L (136-145)
[2018-05-11] MEDS: PANTOPRAZOLE SOD 40 MG TABEC PO SCH (08:01)
[2018-05-11] MEDS: CEFTRIAXONE SOD 1 GM VIAL IV SCH (09:00)
[2018-05-11] MEDS: LOSARTAN POTASSIUM 25 MG TAB PO SCH (09:00)
[2018-05-11] MEDS: ACEBUTOLOL HCL 200 MG CAP PO SCH (09:00)
[2018-05-11] MEDS: DEXTROSE 5%/LACTATED RINGERS 1,000 ML IV SCH ×3 (10:31→23:13)
[2018-05-11] MEDS: SIMVASTATIN 40 MG TAB PO SCH (20:47)
[2018-05-12] VITALS (7 sets, daily range): BP systolic 140–163; BP diastolic 64–78
[2018-05-12] MEDS ORDERED: SODIUM CHLORIDE FLUSH 10 ML SYR INJ PRN (07:15)
[2018-05-12] MEDS ORDERED: HYDROCODONE/APAP 5MG-325MG TAB PO PRN (07:15)
[2018-05-12] MEDS: CEFTRIAXONE SOD 1 GM VIAL IV SCH (08:36)
[2018-05-12] MEDS: PANTOPRAZOLE SOD 40 MG TABEC PO SCH (08:36)
[2018-05-12] MEDS: ACEBUTOLOL HCL 200 MG CAP PO SCH (08:36)
[2018-05-12] MEDS: LOSARTAN POTASSIUM 25 MG TAB PO SCH (08:36)
[2018-05-12] MEDS: CALCIUM CARBONATE 500 MG CHEWABLE TABS PO PRN ×2 (13:03→16:05)
[2018-05-12] MEDS: HYDRALAZINE HCL 20 MG/ML VIAL IV PRN (15:42)
[2018-05-12] MEDS: SIMVASTATIN 40 MG TAB PO SCH (22:00)
[2018-05-12] MEDS: ONDANSETRON HCL INJ 2 MG/ML VIAL IV PRN (22:17)
[2018-05-12] MEDS: HYDROMORPHONE 1MG/1ML INJ IV PRN (22:19)
[2018-05-13] VITALS (7 sets, daily range): BP systolic 148–165; BP diastolic 67–77
[2018-05-13] MEDS: ONDANSETRON HCL INJ 2 MG/ML VIAL IV PRN (02:42)
[2018-05-13] MEDS: HYDROMORPHONE 1MG/1ML INJ IV PRN (02:42)
[2018-05-13] MEDS: PANTOPRAZOLE SOD 40 MG TABEC PO SCH (07:30)
[2018-05-13] MEDS: LOSARTAN POTASSIUM 25 MG TAB PO SCH (09:00)
[2018-05-13] MEDS: ACEBUTOLOL HCL 200 MG CAP PO SCH (09:00)
[2018-05-13] MEDS: CEFTRIAXONE SOD 1 GM VIAL IV SCH (09:00)
[2018-05-13] MEDS: SIMVASTATIN 40 MG TAB PO SCH (21:00)
[2018-05-14] VITALS (8 sets, daily range): BP systolic 153–175; BP diastolic 78–94
[2018-05-14 05:55] LABS: BASOPHILS % 0.5 % (0.0-1.0); EOSINOPHILS # (AUTO) 0.1 (0.0-0.4); EOSINOPHILS % 1.2 % (0.0-6.0); HEMATOCRIT 27.7 % (34.2-44.1); HEMOGLOBIN 8.6 g/dL (12.0-16.0); LYMPHOCYTES % 14.8 % (18.0-39.1); MEAN CORPUSCULAR HEMOGLOBIN 27.4 pg (28-32); MEAN CORPUSCULAR VOLUME 88.2 fL (81-99); MONOCYTES # (AUTO) 0.3 (0.2-0.8); MONOCYTES % 5.1 % (4.4-11.3); NEUTROPHILS % 77.3 % (38.7-80.0); PLATELET COUNT 458 x10e3/uL (140-360); RED BLOOD COUNT 3.14 x10e6/uL (3.6-5.1); RED CELL DISTRIBUTION WIDTH 15.7 % (11.7-14.4)
[2018-05-14 06:18] LABS: ALANINE AMINOTRANSFERASE 9 IU/L (0-55); ALBUMIN 1.9 g/dL (3.5-5.0); ALBUMIN/GLOBULIN RATIO 0.6 (0.8-2.0); ALKALINE PHOSPHATASE 82 IU/L (40-150); ANION GAP 15.5 mmol/L (8-16); BLOOD UREA NITROGEN 5 mg/dL (7-26); BUN/CREATININE RATIO 9 (6-25); CALCIUM 8.4 mg/dL (8.4-10.2); CARBON DIOXIDE 20 mmol/L (22-29); CHLORIDE 106 mmol/L (98-107); CREATININE, SERUM 0.54 mg/dL (0.57-1.11); EST GLOMERULAR FILTRATION RATE > 60 ML/MIN (60-); GLUCOSE 111 mg/dL (74-118); POTASSIUM 3.5 mmol/L (3.5-5.1); SODIUM 138 mmol/L (136-145)
[2018-05-14] MEDS: PANTOPRAZOLE SOD 40 MG TABEC PO SCH (08:15)
[2018-05-14] MEDS: CEFTRIAXONE SOD 1 GM VIAL IV SCH (09:10)
[2018-05-14] MEDS: LOSARTAN POTASSIUM 25 MG TAB PO SCH (09:10)
[2018-05-14] MEDS: ACEBUTOLOL HCL 200 MG CAP PO SCH (09:11)
[2018-05-14] MEDS: CALCIUM CARBONATE 500 MG CHEWABLE TABS PO PRN (15:14)
[2018-05-14] MEDS: SIMVASTATIN 40 MG TAB PO SCH (21:00)
[2018-05-15] VITALS (7 sets, daily range): BP systolic 148–168; BP diastolic 76–82
[2018-05-15] MEDS: PANTOPRAZOLE SOD 40 MG TABEC PO SCH (07:38)
[2018-05-15] MEDS: ACEBUTOLOL HCL 200 MG CAP PO SCH (09:49)
[2018-05-15] MEDS: CEFTRIAXONE SOD 1 GM VIAL IV SCH (09:49)
[2018-05-15] MEDS: LOSARTAN POTASSIUM 25 MG TAB PO SCH (09:49)
[2018-05-15] MEDS: SIMVASTATIN 40 MG TAB PO SCH (21:30)
[2018-05-16] VITALS (8 sets, daily range): BP systolic 154–166; BP diastolic 72–93
[2018-05-16] MEDS: PANTOPRAZOLE SOD 40 MG TABEC PO SCH (09:09)
[2018-05-16] MEDS: CEFTRIAXONE SOD 1 GM VIAL IV SCH (09:09)
[2018-05-16] MEDS: LOSARTAN POTASSIUM 25 MG TAB PO SCH (09:09)
[2018-05-16] MEDS: ACEBUTOLOL HCL 200 MG CAP PO SCH (09:10)
[2018-05-16] MEDS: SIMVASTATIN 40 MG TAB PO SCH (21:00)
[2018-05-17] VITALS (7 sets, daily range): BP systolic 146–161; BP diastolic 70–86
[2018-05-17] MEDS: PANTOPRAZOLE SOD 40 MG TABEC PO SCH (09:07)
[2018-05-17] MEDS: CEFTRIAXONE SOD 1 GM VIAL IV SCH (09:07)
[2018-05-17] MEDS: LOSARTAN POTASSIUM 25 MG TAB PO SCH (09:07)
[2018-05-17] MEDS: ACEBUTOLOL HCL 200 MG CAP PO SCH (09:07)
[2018-05-17] MEDS: SIMVASTATIN 40 MG TAB PO SCH (21:00)
[2018-05-18] VITALS (7 sets, daily range): BP systolic 142–152; BP diastolic 67–90
[2018-05-18 06:41] LABS: ANION GAP 13.9 mmol/L (8-16); BLOOD UREA NITROGEN 6 mg/dL (7-26); BUN/CREATININE RATIO 11 (6-25); CALCIUM 9.1 mg/dL (8.4-10.2); CARBON DIOXIDE 23 mmol/L (22-29); CHLORIDE 107 mmol/L (98-107); CREATININE, SERUM 0.56 mg/dL (0.57-1.11); EST GLOMERULAR FILTRATION RATE > 60 ML/MIN (60-); GLUCOSE 100 mg/dL (74-118); POTASSIUM 3.9 mmol/L (3.5-5.1); SODIUM 140 mmol/L (136-145)
[2018-05-18 06:46] LABS: BASOPHILS % 0.3 % (0.0-1.0); EOSINOPHILS # (AUTO) 0.2 (0.0-0.4); EOSINOPHILS % 2.5 % (0.0-6.0); HEMOGLOBIN 8.7 g/dL (12.0-16.0); LYMPHOCYTES # (AUTO) 1.3 (1.0-3.2); LYMPHOCYTES % 18.9 % (18.0-39.1); MEAN CORPUSCULAR HEMOGLOBIN 27.2 pg (28-32); MEAN CORPUSCULAR HGB CONC 31.1 g/dL (31-35); MEAN CORPUSCULAR VOLUME 87.5 fL (81-99); MONOCYTES # (AUTO) 0.5 (0.2-0.8); MONOCYTES % 7.2 % (4.4-11.3); NEUTROPHILS # (AUTO) 4.9 (2.1-6.9); NEUTROPHILS % 70.4 % (38.7-80.0); PLATELET COUNT 509 x10e3/uL (140-360); RED CELL DISTRIBUTION WIDTH 15.7 % (11.7-14.4)
[2018-05-18] MEDS: ACEBUTOLOL HCL 200 MG CAP PO SCH (08:25)
[2018-05-18] MEDS: PANTOPRAZOLE SOD 40 MG TABEC PO SCH (08:25)
[2018-05-18] MEDS: CEFTRIAXONE SOD 1 GM VIAL IV SCH (08:25)
[2018-05-18] MEDS: LOSARTAN POTASSIUM 25 MG TAB PO SCH (08:25)
[2018-05-18] MEDS: SIMVASTATIN 40 MG TAB PO SCH (20:52)
[2018-05-19] VITALS: BP 143/76
[2018-05-19 04:00] VITALS: BP 146/80
[2018-05-19 05:16] LABS: BASOPHILS % 0.5 % (0.0-1.0); EOSINOPHILS # (AUTO) 0.2 (0.0-0.4); EOSINOPHILS % 2.8 % (0.0-6.0); HEMATOCRIT 28.3 % (34.2-44.1); HEMOGLOBIN 8.6 g/dL (12.0-16.0); LYMPHOCYTES # (AUTO) 1.4 (1.0-3.2); LYMPHOCYTES % 17.4 % (18.0-39.1); MEAN CORPUSCULAR HEMOGLOBIN 26.7 pg (28-32); MEAN CORPUSCULAR HGB CONC 30.4 g/dL (31-35); MEAN CORPUSCULAR VOLUME 87.9 fL (81-99); MONOCYTES # (AUTO) 0.5 (0.2-0.8); MONOCYTES % 6.6 % (4.4-11.3); NEUTROPHILS # (AUTO) 5.7 (2.1-6.9); NEUTROPHILS % 71.8 % (38.7-80.0); PLATELET COUNT 495 x10e3/uL (140-360); RED BLOOD COUNT 3.22 x10e6/uL (3.6-5.1); RED CELL DISTRIBUTION WIDTH 15.8 % (11.7-14.4)
[2018-05-19 05:44] LABS: ANION GAP 13.6 mmol/L (8-16); BLOOD UREA NITROGEN 6 mg/dL (7-26); BUN/CREATININE RATIO 11 (6-25); CALCIUM 9.1 mg/dL (8.4-10.2); CARBON DIOXIDE 22 mmol/L (22-29); CHLORIDE 105 mmol/L (98-107); CREATININE, SERUM 0.56 mg/dL (0.57-1.11); EST GLOMERULAR FILTRATION RATE > 60 ML/MIN (60-); GLUCOSE 100 mg/dL (74-118); POTASSIUM 3.6 mmol/L (3.5-5.1); SODIUM 137 mmol/L (136-145)
[2018-05-19] MEDS: PANTOPRAZOLE SOD 40 MG TABEC PO SCH (07:30)
[2018-05-19 08:08] VITALS: BP 155/84
[2018-05-19] MEDS: ACEBUTOLOL HCL 200 MG CAP PO SCH (09:00)
[2018-05-19] MEDS: LOSARTAN POTASSIUM 25 MG TAB PO SCH (09:00)
[2018-05-19] MEDS: CEFTRIAXONE SOD 1 GM VIAL IV SCH (09:00)
[2018-05-19 11:39] VITALS: BP 158/92
[2018-05-19 16:03] VITALS: BP 156/87
== END 2018-05-19 19:38 | disposition home or self-care (01) | DRG 854 ==
LOC: MED/SURG3 22:50
PROVIDERS: ADMIT Internal Medicine; ATTEND Internal Medicine
PROC: 0UDB7ZX Extraction of Endometrium, Via Natural or Artificial Opening, Diagnostic (ICD-10-PCS; principal; 2018-05-01)
PROC: 0D1N0Z4 Bypass Sigmoid Colon to Cutaneous, Open Approach (ICD-10-PCS; 2018-05-07)
PROC: 0W9G0ZX Drainage of Peritoneal Cavity, Open Approach, Diagnostic (ICD-10-PCS; 2018-05-07)
PROC: 0UT60ZZ Resection of Left Fallopian Tube, Open Approach (ICD-10-PCS; 2018-05-07)
PROC: 0UT10ZZ Resection of Left Ovary, Open Approach (ICD-10-PCS; 2018-05-07)
PROC: 0T788DZ Dilation of Bilateral Ureters with Intraluminal Device, Via Natural or Artificial Opening Endoscopic (ICD-10-PCS; 2018-05-07)
PROC: 0DTN0ZZ Resection of Sigmoid Colon, Open Approach (ICD-10-PCS; 2018-05-07 07:00)
DX: A41.9 Sepsis, unspecified organism (principal); K57.20 Diverticulitis of large intestine with perforation and abscess without bleeding; R93.8 Abnormal findings on diagnostic imaging of other specified body structures; I10 Essential (primary) hypertension; I69.328 Other speech and language deficits following cerebral infarction; D64.9 Anemia, unspecified; K21.9 Gastro-esophageal reflux disease without esophagitis; E78.00 Pure hypercholesterolemia, unspecified; R53.81 Other malaise; N84.0 Polyp of corpus uteri; R11.0 Nausea; N83.8 Other noninflammatory disorders of ovary, fallopian tube and broad ligament
CPT/HCPCS: 36415; 36430; 74420; 80048; 80053; 82150; 82378; 82948; 83690; 83735; 85025; 86304; 86850; 86900; 86920; 87071; 87075; 87186; 87205; 88112; 88304; 88305; 88307; 88331; 93005; 96361; 97139; J0360; J0690; J0696; J1100; J1170; J1650; J2001; J2250; J2370; J2405; J2543; J2550; J7030; J7050; J7120; P9016

== ENCOUNTER 2018-06-25 05:11 | Inpatient (IN) | payer MEDICARE ==
[2018-06-23 13:09] LABS: BASOPHILS % 0.7 % (0.0-1.0); EOSINOPHILS # (AUTO) 0.1 (0.0-0.4); EOSINOPHILS % 1.2 % (0.0-6.0); HEMOGLOBIN 11.9 g/dL (12.0-16.0); LYMPHOCYTES % 33.3 % (18.0-39.1); MEAN CORPUSCULAR HEMOGLOBIN 27.5 pg (28-32); MEAN CORPUSCULAR HGB CONC 30.5 g/dL (31-35); MEAN CORPUSCULAR VOLUME 90.1 fL (81-99); MONOCYTES # (AUTO) 0.4 (0.2-0.8); NEUTROPHILS # (AUTO) 3.5 (2.1-6.9); NEUTROPHILS % 57.5 % (38.7-80.0); PLATELET COUNT 296 x10e3/uL (140-360); RED BLOOD COUNT 4.33 x10e6/uL (3.6-5.1); RED CELL DISTRIBUTION WIDTH 15.4 % (11.7-14.4)
[2018-06-23 13:23] LABS: ANION GAP 16.8 mmol/L (8-16); BLOOD UREA NITROGEN 8 mg/dL (7-26); BUN/CREATININE RATIO 11 (6-25); CALCIUM 10.1 mg/dL (8.4-10.2); CARBON DIOXIDE 23 mmol/L (22-29); CHLORIDE 104 mmol/L (98-107); CREATININE, SERUM 0.75 mg/dL (0.57-1.11); EST GLOMERULAR FILTRATION RATE > 60 ML/MIN (60-); GLUCOSE 95 mg/dL (74-118); POTASSIUM 3.8 mmol/L (3.5-5.1); SODIUM 140 mmol/L (136-145)
--- NOTE | 2018-06-23 13:52 | Diagnostic Imaging Report ---
EXAMINATION: PA and lateral views of the chest. COMPARISON: None CLINICAL HISTORY: Preoperative evaluation for diverticulitis DISCUSSION: Lines/tubes: Cardiac monitoring device. Lungs: The lungs are well inflated and clear. No pneumonia or pulmonary edema. Calcified granuloma left lower lobe. Pleura: No pleural effusion or pneumothorax. Heart and mediastinum: The cardiomediastinal silhouette is normal. Bones and soft tissues: No acute bony abnormalities. IMPRESSION: No acute cardiopulmonary abnormalities. Signed by: Dr. Kojo Jimenez M.D. on 06/23/2018 1:46 PM
[~2018-06-25] VITALS: Ht 165.1 cm; Wt 59.9 kg
[~2018-06-25 05:11] MED LIST: ACEBUTOLOL HCL200 MG PO; LOSARTAN POTASS25 MG PO; LOVASTATIN40 MG PO; TYLENOL WITH C1 EACH PO
[2018-06-25] MEDS ORDERED: CEFOXITIN SOD 1 GM VIAL ONE (05:54)
[2018-06-25] MEDS ORDERED: BACITRACIN 50,000 UNIT VIAL ONE (06:08)
[2018-06-25] MEDS ORDERED: KETOROLAC TROMETHAMINE 30 MG/ML VIAL IV PRN (08:45)
[2018-06-25] MEDS ORDERED: ACETAMINOPHEN 1000 MG/100 ML IV PRN (08:45)
[2018-06-25] MEDS ORDERED: NALOXONE HCL INJ 0.4 MG/ML AMP IV PRN (08:45)
[2018-06-25] MEDS ORDERED: DIPHENHYDRAMINE HCL INJ 50 MG/ML VIAL IM PRN (08:45)
[2018-06-25] MEDS ORDERED: MORPHINE SULFATE 1 MG/ML 30ML PCA ONE (08:47)
[2018-06-25] MEDS ORDERED: MORPHINE SULFATE 2 MG/ML SYR ONE (08:52)
[2018-06-25] MEDS: ACEBUTOLOL HCL 200 MG CAP PO SCH (09:00)
[2018-06-25] MEDS ORDERED: SIMVASTATIN 20 MG TAB PO SCH (09:00)
[2018-06-25] MEDS: LOSARTAN POTASSIUM 25 MG TAB PO SCH (09:00)
--- NOTE | 2018-06-25 09:20 | Operative Report ---
DATE OF PROCEDURE: June 25, 2018 PREOPERATIVE DIAGNOSIS: Perforated diverticulitis, status post colostomy. POSTOPERATIVE DIAGNOSIS: Perforated diverticulitis, status post colostomy with sigmoid colon stricture. PROCEDURES 1. Exploratory laparotomy. 2. Lysis of adhesions. 3. Partial colon resection and reversal of colostomy. SENIOR UI DEVELOPER: None. ANESTHESIA: General. INDICATIONS AND FINDINGS: The patient is a 63-year-old female who underwent surgery about 2 months ago for perforated colon diverticulitis. At surgery, she was found to have some adhesions involving the small bowel, omentum and colon. There was a strictured area in the closed off portion of the sigmoid colon, which required resection. The proximal colon was essentially normal. TECHNIQUE: After adequate general endotracheal anesthesia with the patient in the supine position, the abdomen was prepped and draped in a sterile fashion with Betadine solution. The previous midline wound incision was made and carried down through the subcutaneous tissue until the fascia was seen. Fascia was opened in the midline. The peritoneal cavity was entered. There were adhesions involving omentum to the abdominal wall. These were lysed. In the preperitoneal cavity, there were adhesions involving the small bowel. These were all lysed using scissors freeing the small bowel completely. In the pelvis, the distal colon was identified, but was previously marked with sutures of Prolene. The colon was mobilized. It was somewhat thickened where the closed off end of the colon was and suggested possible stricture there. The colon was freed from the abdominal wall where the colostomy stoma was. Incision was made around the stoma and carried into the subcutaneous tissue down to the fascia and freed from the fascia. The proximal colon was freed from the abdominal wall and delivered in the peritoneal cavity. The portion of the colon was resected where the stoma was. The mesentery was divided with the ligature device and the colon divided with the CAROLINE stapler. About 3 cm of proximal colon was removed. The distal colon also had a portion resected as there appeared to be a stricture there. The colon beyond the area of the stricture was divided with the CAROLINE stapler. Mesentery divided with LigaSure device. Anastomosis was made between the proximal and distal colon with a CRAOLINE stapler and TL-60 stapler. Pericolonic fat was sutured over the staple lines using 3-0 Vicryl. Hemostasis was seen to be adequate. The wound was irrigated with saline and inspected for hemostasis, which was seen to be adequate. The midline fascia was closed with a running suture of #1 PDS. The fascia at the colostomy stoma site was closed with a running suture of #1 PDS. Subcutaneous tissue region was irrigated with saline. Skin was closed with karine. Sterile dressings applied to each wound. The patient tolerated the procedure well. Estimated blood loss was 75 mL. There were no complications. All counts were correct. The patient was taken to the recovery room in satisfactory condition. Job#: [id number] MORRIS
[2018-06-25 10:13] VITALS: BP 88/44
[2018-06-25 10:22] VITALS: BP 88/44
[2018-06-25 10:29] VITALS: BP 88/44
[2018-06-25] MEDS: DEXTROSE 5%/LACTATED RINGERS 1,000 ML IV SCH ×2 (11:57→17:05)
[2018-06-25] MEDS ORDERED: CEFOXITIN 2GM/ D5W 50ML 50 ML IV SCH (12:00)
[2018-06-25 12:10] VITALS: BP 160/94
[2018-06-25] MEDS: CEFOXITIN SODIUM 2 G/VIAL IV SCH ×2 (12:56→17:05)
[2018-06-25] MEDS ORDERED: DEXAMETHASONE SOD PHOS INJ 4 MG/ML VIAL ONE (17:25)
[2018-06-25] MEDS ORDERED: ROCURONIUM BROMIDE 10 MG/ML 5ML VIAL ONE (17:25)
[2018-06-25] MEDS ORDERED: GLYCOPYRROLATE INJ 1MG/ 5 ML SYR ONE (17:25)
[2018-06-25] MEDS ORDERED: HYDRALAZINE HCL 20 MG/ML VIAL ONE (17:25)
[2018-06-25] MEDS ORDERED: SEVOFLURANE INHAL SOLN 250 ML PEN BTL ONE (17:25)
[2018-06-25] MEDS ORDERED: ONDANSETRON HCL INJ 2 MG/ML VIAL ONE (17:25)
[2018-06-25] MEDS ORDERED: NEOSTIGMINE 5 MG/5ML SYR ONE (17:25)
[2018-06-25] MEDS ORDERED: LIDOCAINE HCL 2% LOCAL INJ 5 ML SDV VIAL INJ ONE (17:25)
[2018-06-25] MEDS ORDERED: ACETAMINOPHEN 1000 MG/100 ML IV ONE (17:25)
[2018-06-25] MEDS ORDERED: PROPOFOL IV EMULSION 10 MG/ML 20 ML VIAL ONE (17:25)
[2018-06-25] MEDS ORDERED: MIDAZOLAM HCL 2 MG/2 ML VIAL ONE (19:15)
[2018-06-25] MEDS ORDERED: FENTANYL CITRATE/PF 100MCG/2 ML INJ ONE (19:15)
[2018-06-25] MEDS ORDERED: MORPHINE SULFATE INJ 10 MG/ML ONE (19:15)
[2018-06-25 20:00] VITALS: BP_SYST 152; BP_SYST 160; BP_DIAS 72; BP_DIAS 94
[2018-06-25] MEDS: SIMVASTATIN 40 MG TAB PO SCH (21:00)
[2018-06-26] VITALS (8 sets, daily range): BP systolic 116–152; BP diastolic 57–65
[2018-06-26] MEDS: CEFOXITIN SODIUM 2 G/VIAL IV SCH ×2 (00:03→05:46)
[2018-06-26] MEDS: DEXTROSE 5%/LACTATED RINGERS 1,000 ML IV SCH ×3 (00:33→22:22)
[2018-06-26 05:26] LABS: BASOPHILS % 0.1 % (0.0-1.0); EOSINOPHILS % 0.1 % (0.0-6.0); HEMOGLOBIN 11.1 g/dL (12.0-16.0); LYMPHOCYTES # (AUTO) 1.3 (1.0-3.2); LYMPHOCYTES % 11.6 % (18.0-39.1); MEAN CORPUSCULAR HEMOGLOBIN 27.9 pg (28-32); MEAN CORPUSCULAR HGB CONC 31.7 g/dL (31-35); MEAN CORPUSCULAR VOLUME 87.9 fL (81-99); MONOCYTES # (AUTO) 0.7 (0.2-0.8); MONOCYTES % 6.6 % (4.4-11.3); NEUTROPHILS # (AUTO) 9.1 (2.1-6.9); NEUTROPHILS % 81.2 % (38.7-80.0); PLATELET COUNT 263 x10e3/uL (140-360); RED BLOOD COUNT 3.98 x10e6/uL (3.6-5.1); RED CELL DISTRIBUTION WIDTH 15.3 % (11.7-14.4)
[2018-06-26] MEDS: MORPHINE SULFATE 1 MG/ML 30ML PCA IV PRN (05:40)
[2018-06-26 06:05] LABS: ANION GAP 12.9 mmol/L (8-16); BLOOD UREA NITROGEN 5 mg/dL (7-26); BUN/CREATININE RATIO 8 (6-25); CALCIUM 9.1 mg/dL (8.4-10.2); CARBON DIOXIDE 22 mmol/L (22-29); CHLORIDE 107 mmol/L (98-107); CREATININE, SERUM 0.63 mg/dL (0.57-1.11); EST GLOMERULAR FILTRATION RATE > 60 ML/MIN (60-); GLUCOSE 144 mg/dL (74-118); POTASSIUM 3.9 mmol/L (3.5-5.1); SODIUM 138 mmol/L (136-145)
[2018-06-26] MEDS: LOSARTAN POTASSIUM 25 MG TAB PO SCH (09:25)
[2018-06-26] MEDS: ACEBUTOLOL HCL 200 MG CAP PO SCH (09:25)
[2018-06-26] MEDS: SIMVASTATIN 40 MG TAB PO SCH (21:05)
[2018-06-27] VITALS (7 sets, daily range): BP systolic 110–147; BP diastolic 55–75
[2018-06-27 05:33] LABS: HEMATOCRIT 33.4 % (34.2-44.1); HEMOGLOBIN 10.3 g/dL (12.0-16.0); MEAN CORPUSCULAR HEMOGLOBIN 27.4 pg (28-32); MEAN CORPUSCULAR HGB CONC 30.8 g/dL (31-35); MEAN CORPUSCULAR VOLUME 88.8 fL (81-99); PLATELET COUNT 257 x10e3/uL (140-360); RED BLOOD COUNT 3.76 x10e6/uL (3.6-5.1); RED CELL DISTRIBUTION WIDTH 15.8 % (11.7-14.4)
[2018-06-27 05:55] LABS: ANION GAP 14.1 mmol/L (8-16); BLOOD UREA NITROGEN 6 mg/dL (7-26); BUN/CREATININE RATIO 9 (6-25); CALCIUM 9.1 mg/dL (8.4-10.2); CARBON DIOXIDE 25 mmol/L (22-29); CHLORIDE 104 mmol/L (98-107); CREATININE, SERUM 0.64 mg/dL (0.57-1.11); EST GLOMERULAR FILTRATION RATE > 60 ML/MIN (60-); GLUCOSE 124 mg/dL (74-118); POTASSIUM 4.1 mmol/L (3.5-5.1); SODIUM 139 mmol/L (136-145)
[2018-06-27] MEDS: MORPHINE SULFATE 1 MG/ML 30ML PCA IV PRN (06:05)
[2018-06-27] MEDS: LOSARTAN POTASSIUM 25 MG TAB PO SCH (08:55)
[2018-06-27] MEDS: ACEBUTOLOL HCL 200 MG CAP PO SCH (08:56)
--- NOTE | 2018-06-27 10:29 | Progress Note ---
DATE: The patient did well overnight. No new complaints. OBJECTIVE VITAL SIGNS: Stable and afebrile. GENERAL: No apparent distress. CARDIOVASCULAR: Regular rate and rhythm. LUNGS: Clear to auscultation bilaterally. ABDOMEN: Soft. EXTREMITIES: No clubbing or cyanosis. NEUROLOGICAL: Nonfocal. ASSESSMENT AND PLAN 1. Status post reversal of colostomy: Continue with postoperative pain control. 2. Hypertension: Continue with current care. 3. Hyperlipidemia: Continue with current care. 4. History of cerebrovascular accident: Continue with current care. Please see hospital chart for full details. Job#: [id number] ID
[2018-06-27] MEDS: DEXTROSE 5%/LACTATED RINGERS 1,000 ML IV SCH (14:11)
[2018-06-27] MEDS: HYDROCODONE/APAP 5MG-325MG TAB PO PRN (19:19)
[2018-06-27] MEDS: ONDANSETRON HCL INJ 2 MG/ML VIAL IV PRN (19:19)
[2018-06-27] MEDS: SIMVASTATIN 40 MG TAB PO SCH (21:45)
[2018-06-28] VITALS (7 sets, daily range): BP systolic 120–149; BP diastolic 55–73
[2018-06-28] MEDS: HYDROCODONE/APAP 5MG-325MG TAB PO PRN ×4 (04:09→19:03)
[2018-06-28] MEDS: DEXTROSE 5%/LACTATED RINGERS 1,000 ML IV SCH ×2 (05:00→15:48)
[2018-06-28] MEDS: LOSARTAN POTASSIUM 25 MG TAB PO SCH (08:19)
[2018-06-28] MEDS: ACEBUTOLOL HCL 200 MG CAP PO SCH (08:20)
[2018-06-28] MEDS ORDERED: PANTOPRAZOLE 40 MG 10ML VIAL IV ONE (09:00)
[2018-06-28] MEDS: SIMVASTATIN 40 MG TAB PO SCH (20:25)
[2018-06-29] VITALS: BP 165/79
[2018-06-29] MEDS: HYDROCODONE/APAP 5MG-325MG TAB PO PRN ×2 (00:45→20:59)
[2018-06-29] MEDS: ONDANSETRON HCL INJ 2 MG/ML VIAL IV PRN ×3 (00:45→20:59)
[2018-06-29 04:00] VITALS: BP 168/78
[2018-06-29 05:43] LABS: BASOPHILS % 0.2 % (0.0-1.0); EOSINOPHILS # (AUTO) 0.1 (0.0-0.4); EOSINOPHILS % 0.9 % (0.0-6.0); HEMATOCRIT 31.3 % (34.2-44.1); LYMPHOCYTES # (AUTO) 0.9 (1.0-3.2); LYMPHOCYTES % 16.1 % (18.0-39.1); MEAN CORPUSCULAR HEMOGLOBIN 27.9 pg (28-32); MEAN CORPUSCULAR HGB CONC 31.9 g/dL (31-35); MEAN CORPUSCULAR VOLUME 87.2 fL (81-99); MONOCYTES # (AUTO) 0.4 (0.2-0.8); MONOCYTES % 6.9 % (4.4-11.3); NEUTROPHILS # (AUTO) 4.1 (2.1-6.9); NEUTROPHILS % 75.7 % (38.7-80.0); PLATELET COUNT 301 x10e3/uL (140-360); RED BLOOD COUNT 3.59 x10e6/uL (3.6-5.1); RED CELL DISTRIBUTION WIDTH 15.3 % (11.7-14.4)
[2018-06-29 06:06] LABS: ANION GAP 13.6 mmol/L (8-16); BLOOD UREA NITROGEN < 5 mg/dL (7-26); CALCIUM 8.6 mg/dL (8.4-10.2); CARBON DIOXIDE 23 mmol/L (22-29); CHLORIDE 105 mmol/L (98-107); CREATININE, SERUM 0.58 mg/dL (0.57-1.11); EST GLOMERULAR FILTRATION RATE > 60 ML/MIN (60-); GLUCOSE 132 mg/dL (74-118); POTASSIUM 3.6 mmol/L (3.5-5.1); SODIUM 138 mmol/L (136-145)
[2018-06-29 06:07] LABS: BUN/CREATININE RATIO 9 (6-25)
[2018-06-29 08:13] VITALS: BP 172/86
[2018-06-29] MEDS: PANTOPRAZOLE 40 MG 10ML VIAL IV SCH (09:01)
[2018-06-29] MEDS: ACEBUTOLOL HCL 200 MG CAP PO SCH (09:03)
[2018-06-29] MEDS: LOSARTAN POTASSIUM 25 MG TAB PO SCH (09:03)
[2018-06-29 09:54] VITALS: BP 172/86
[2018-06-29] MEDS ORDERED: SODIUM CHLORIDE FLUSH 10 ML SYR INJ PRN (12:00)
[2018-06-29] MEDS ORDERED: HYDRALAZINE HCL 10 MG TAB PO ONE (14:00)
[2018-06-29] MEDS ORDERED: HYDRALAZINE HCL 20 MG/ML VIAL IV ONE (14:15)
[2018-06-29 16:25] VITALS: BP 152/67
[2018-06-29 20:00] VITALS: BP 166/76
[2018-06-29] MEDS: SIMVASTATIN 40 MG TAB PO SCH (20:50)
[2018-06-30] VITALS: BP 143/65
[2018-06-30 00:05] VITALS: BP 143/65
[2018-06-30 04:00] VITALS: BP 152/72
[2018-06-30] MEDS: PANTOPRAZOLE 40 MG 10ML VIAL IV SCH (09:01)
[2018-06-30] MEDS: ACEBUTOLOL HCL 200 MG CAP PO SCH (09:02)
[2018-06-30] MEDS: LOSARTAN POTASSIUM 25 MG TAB PO SCH (09:02)
[2018-06-30 09:07] VITALS: BP 170/83
[2018-06-30 10:02] VITALS: BP 170/83
[2018-06-30 12:00] VITALS: BP 173/82
[2018-06-30] MEDS ORDERED: AUGMENTIN 875-1 EACH PO (13:37)
[2018-06-30] MEDS ORDERED: NORCO 5-325 TA1 EACH PO (13:37)
--- NOTE | 2018-06-30 16:54 | Discharge Summary ---
ADMISSION DIAGNOSIS: Perforated diverticulitis, status post colostomy. DISCHARGE DIAGNOSIS: Perforated diverticulitis, status post colostomy, with colon stricture. PRINCIPAL PROCEDURE: Lysis of adhesions, partial colon resection with reversal of colostomy. HISTORY OF PRESENT ILLNESS: The patient is a 63-year-old female with previous partial colon resection for perforated diverticulitis with abscess. HOSPITAL COURSE: The patient was admitted to the hospital the same day as surgery, underwent exploratory laparotomy and lysis of adhesions with partial colon resection and reversal of colostomy. She was found to have a stricture in the colon distal to the colostomy. Postoperatively the patient was stable, was seen in consultation by Dr. Fransisco Morris. She was started on a liquid diet, which she tolerated without problem. She had some mild distention. This resolved. Bowel function returned to normal. Diet was advanced to a regular diet, and she was discharged home on the 5th postop day. At time of discharge, she was afebrile, tolerated diet, wounds were clean. Discharge medications were Augmentin and [place], and she will continue on her same home meds as she took prior to admission. She will follow up with Dr. Rodriguez 4 days after discharge, was sent home in satisfactory condition on a regular diet. BENITO RODRIGUEZ MD Job#: [id number] EV
== END 2018-06-30 14:08 | disposition home or self-care (01) | DRG 345 ==
LOC: OR 05:11 → PACU V 08:46 → MED/SURG 09:40
PROVIDERS: ADMIT Surgery; ATTEND Surgery
PROC: 0DBE0ZX Excision of Large Intestine, Open Approach, Diagnostic (ICD-10-PCS; 2018-06-25)
PROC: 0DSN0ZZ Reposition Sigmoid Colon, Open Approach (ICD-10-PCS; 2018-06-25)
PROC: 0DBN0ZX Excision of Sigmoid Colon, Open Approach, Diagnostic (ICD-10-PCS; principal; 2018-06-25 06:50)
DX: Z43.3 Encounter for attention to colostomy (principal); K56.609 Unspecified intestinal obstruction, unspecified as to partial versus complete obstruction; I69.351 Hemiplegia and hemiparesis following cerebral infarction affecting right dominant side; E78.5 Hyperlipidemia, unspecified; F41.9 Anxiety disorder, unspecified; I10 Essential (primary) hypertension
CPT/HCPCS: 36415; 71046; 80048; 85007; 85025; 85027; 86850; 86900; 88304; 88305; 93005; 96365; J0360; J0694; J1100; J1200; J1885; J2001; J2250; J2270; J2405; J7120

== ENCOUNTER → 2019-07-02 | Day surgery (SDC) | payer MEDICARE ==
--- NOTE | 2019-06-29 10:20 | NUR ---
Reviewed medications with Meghan Sims RN with Dr. Jones's office for which medications are okay to take morning of procedure. Meghan Sims RN stated all medications okay to take with a sip of water on 07/02/19. Meghan OCASIO stated that patient is to stop Aspirin today and to restart Aspirin on 07/03/19.
[2019-06-29 10:37] LABS: BASOPHILS % 0.7 % (0.0-1.0); EOSINOPHILS # (AUTO) 0.1 (0.0-0.4); EOSINOPHILS % 1.5 % (0.0-6.0); HEMATOCRIT 39.1 % (34.2-44.1); HEMOGLOBIN 12.5 g/dL (12.0-16.0); LYMPHOCYTES # (AUTO) 1.9 (1.0-3.2); LYMPHOCYTES % 32.2 % (18.0-39.1); MEAN CORPUSCULAR HEMOGLOBIN 29.6 pg (28-32); MEAN CORPUSCULAR VOLUME 92.7 fL (81-99); MONOCYTES # (AUTO) 0.5 (0.2-0.8); MONOCYTES % 7.9 % (4.4-11.3); NEUTROPHILS # (AUTO) 3.4 (2.1-6.9); NEUTROPHILS % 57.4 % (38.7-80.0); PLATELET COUNT 259 x10e3/uL (140-360); RED BLOOD COUNT 4.22 x10e6/uL (3.6-5.1)
[2019-06-29 10:50] LABS: INR 0.86; PROTHROMBIN TIME 12.2 seconds (11.9-14.5)
[2019-06-29 11:07] LABS: ANION GAP 13.9 mmol/L (8-16); BLOOD UREA NITROGEN 15 mg/dL (7-26); BUN/CREATININE RATIO 19 (6-25); CALCIUM 9.9 mg/dL (8.4-10.2); CARBON DIOXIDE 26 mmol/L (22-29); CHLORIDE 105 mmol/L (98-107); EST GLOMERULAR FILTRATION RATE > 60 ML/MIN (60-); GLUCOSE 92 mg/dL (74-118); POTASSIUM 3.9 mmol/L (3.5-5.1); SODIUM 141 mmol/L (136-145)
--- NOTE | 2019-06-30 08:46 | Diagnostic Imaging Report ---
EXAMINATION: CHEST 2 VIEWS INDICATION: Pre-operative COMPARISON: Chest radiograph of 06/23/2018 FINDINGS: LINES/TUBES:Left anterior chest implantable loop recorder. LUNGS:The lungs are well-inflated. No focal consolidation or pulmonary edema. Mild biapical pleural parenchymal thickening/scarring. Left lung calcified granulomas. PLEURA:No pleural effusion or pneumothorax. MEDIASTINUM:The cardiomediastinal silhouette appears normal in size and shape. Atherosclerotic calcifications of the thoracic aorta. BONES/SOFT TISSUES:No acute osseous injury. ABDOMEN:No free air under the diaphragm. IMPRESSION: No focal pneumonia or pulmonary edema. Signed by: Logan Banks MD on 06/30/2019 8:43 AM
[~2019-07-02] VITALS: Ht 165.1 cm; Wt 68.0 kg
[~2019-07-02] MED LIST changes: +AMLODIPINE BESY10 MG PO; +ASPIRIN81 MG PO; +AUGMENTIN 875-1 EACH PO; +FENTANYL CITRATE/PF 100MCG/2 ML INJ ONE; +LIDOCAINE 1% W/EPINEPHRINE 20 ML VIAL ONE; +MIDAZOLAM HCL 2 MG/2 ML VIAL ONE; +NORCO 5-325 TA1 EACH PO; +SODIUM CHLORIDE 0.9% 500ML 500 ML ONE
[2019-07-02 07:00] VITALS: BP 147/76
[2019-07-02 08:02] VITALS: BP 112/59
[2019-07-02 08:17] VITALS: BP 111/59
[2019-07-02 08:32] VITALS: BP 116/70
--- NOTE | 2019-07-02 12:54 | Operative Report ---
DATE OF PROCEDURE: SURGEON: Justin Jones MD PROCEDURE: Removal of implantable loop recorder. PREOPERATIVE DIAGNOSIS: Syncope. POSTOPERATIVE DIAGNOSIS: Syncope. COMPLICATIONS: None. ANESTHESIA: Versed, fentanyl, and lidocaine. TECHNIQUE: The patient was draped and prepped in the usual fashion. The area over the loop recorder was anesthetized with lidocaine. A 15 blade scalpel was used to make an incision and the existing loop recorder was then dissected free and removed. The pocket was irrigated with saline solution. The pocket was then closed with 2-0 Vicryl. There were no complications. CONCLUSION: Successful removal of implantable loop recorder. Justin Jones MD DSH/MODL /[id number]
== END | disposition home or self-care (01) ==
LOC: CATH LAB 06:12
PROVIDERS: ATTEND Internal Medicine Cardiovascular Disease
DX: Z45.09 Encounter for adjustment and management of other cardiac device (principal); R55 Syncope and collapse; Z01.810 Encounter for preprocedural cardiovascular examination; Z01.812 Encounter for preprocedural laboratory examination; Z01.811 Encounter for preprocedural respiratory examination; Z88.8 Allergy status to other drugs, medicaments and biological substances; Z86.73 Personal history of transient ischemic attack (TIA), and cerebral infarction without residual deficits; I10 Essential (primary) hypertension; E78.00 Pure hypercholesterolemia, unspecified; Z82.3 Family history of stroke; Z82.49 Family history of ischemic heart disease and other diseases of the circulatory system
CPT/HCPCS: 33286; 36415; 71046; 80048; 85025; 85610; 93005; J2250; J3010; J7040

== ENCOUNTER → 2025-04-29 | Outpatient (REF) | payer MEDICARE ==
[~2025-04-29] MED LIST changes: -FENTANYL CITRATE/PF 100MCG/2 ML INJ ONE; +IOPAMIDOL 370 MG/ML 100 ML INFUS..BTL INJ ONE; -LIDOCAINE 1% W/EPINEPHRINE 20 ML VIAL ONE; -MIDAZOLAM HCL 2 MG/2 ML VIAL ONE; -SODIUM CHLORIDE 0.9% 500ML 500 ML ONE
[2025-04-29 12:39] LABS: EST GLOMERULAR FILTRATION RATE 66.0 ML/MIN (>=60)
== END ==
LOC: CT 11:46
PROVIDERS: ATTEND Internal Medicine
DX: R10.32 Left lower quadrant pain (principal)
CPT/HCPCS: 36415; 74177; 82565; 84520; Q9967